=== PATIENT | female | born 1970 | race Caucasian/White ===

== ENCOUNTER 2019-09-04 07:52 | Day surgery (SDC) | payer BC ==
[~2019-09-04] VITALS: Ht 160 cm; Wt 65.8 kg
[2019-09-04 08:17] VITALS: BP 117/70; PULSE 82; TEMP 99.3
[2019-09-04] MEDS ORDERED: ESTRACE2 MG PO (08:17)
[2019-09-04 08:40] VITALS: BP 112/84; PULSE 71; TEMP 97
--- NOTE | 2019-09-04 08:40 | NUR ---
Patient arrives to [facility] via cart, accompanied by [facility] RN Caroline Craven. SHe is alert and oriented. She ambulates to the chair in her room with steady gait. Her spouse is at the bedside. Monitoring is applied -VSS and WNL on room air. She denies pain or nausea. Bedside report is received. She is offered and receives juice and a muffin to eat. PIV is to TKO. Call light in reach.
--- NOTE | 2019-09-04 08:50 | NUR ---
Dr. Venegas is at the bedside at this time and speaks with the patient and her spouse.
[2019-09-04 08:55] VITALS: BP 104/84; PULSE 77
--- NOTE | 2019-09-04 08:55 | NUR ---
Patient is resting in her room, talking with spouse. Denies pain, nausea, or need. VSS and WNL on room air.
[2019-09-04 09:25] VITALS: BP 108/49; PULSE 86; TEMP 97.8
--- NOTE | 2019-09-04 09:25 | NUR ---
Patient brought back to bay [facility] via cart. Ambulated to chair without difficulty. Placed on monitors, vital signs stable. Denies nausea or pain. Report recieved from Lynnette BRADLEY, all questions answered. Warm blanket provided. Patient asking for orange juice. called, states he is on his way to pick patient up. Call young within reach will continue to monitor.
[2019-09-04 09:40] VITALS: BP 100/58; PULSE 91
--- NOTE | 2019-09-04 09:40 | NUR ---
Patient states she is feeling well but has a headache. Patient requesting pepsi. Will continue to monitor.
[2019-09-04 09:55] VITALS: BP 103/70; PULSE 84
--- NOTE | 2019-09-04 09:55 | NUR ---
Patient states she is feeling well. Would like to go home at this time. Awaiting husbands arrival. Vital signs stable. Will continue to monitor.
--- NOTE | 2019-09-04 10:10 | NUR ---
IV removed per orders, intact. Discharge instructions and education packet reviewed with patient. All questions answered. Patient to get dressed at this time.
--- NOTE | 2019-09-04 10:23 | NUR ---
Patient brought down to lobby via wheel chair. met at front door. Will be driven home by . All belongings in hand.
== END 2019-09-04 10:23 | disposition home or self-care (01) ==
LOC: SDCO 07:52
DX: R10.32 Left lower quadrant pain (principal); K59.00 Constipation, unspecified; R19.7 Diarrhea, unspecified; G89.29 Other chronic pain; M54.5 Low back pain; Z88.5 Allergy status to narcotic agent; Z88.2 Allergy status to sulfonamides; Z79.899 Other long term (current) drug therapy
CPT/HCPCS: J2704; J7120

== ENCOUNTER 2020-01-15 05:27 | Day surgery (SDC) | payer BC ==
[~2020-01-15] VITALS: Ht 160 cm; Wt 68.6 kg
[~2020-01-15 05:27] MED LIST: ESTRACE2 MG PO
[2020-01-15 05:57] VITALS: BP 110/61; PULSE 90; TEMP 98.9
[2020-01-15] MEDS ORDERED: CARAFATE 1GM1 G PO (05:57)
[2020-01-15 08:00] VITALS: BP 90/51; PULSE 90; TEMP 97
[2020-01-15 08:15] VITALS: BP 101/57; PULSE 77
[2020-01-15 08:30] VITALS: BP 112/64; PULSE 85
[2020-01-15 08:45] VITALS: BP 113/81; PULSE 87
== END 2020-01-15 09:35 | disposition home or self-care (01) ==
LOC: SDCO 05:27
DX: N20.1 Calculus of ureter (principal); E11.9 Type 2 diabetes mellitus without complications; K50.90 Crohn's disease, unspecified, without complications; F17.210 Nicotine dependence, cigarettes, uncomplicated; Z20.828 Contact with and (suspected) exposure to other viral communicable diseases; Z79.899 Other long term (current) drug therapy; Z88.5 Allergy status to narcotic agent; Z88.2 Allergy status to sulfonamides; Z88.8 Allergy status to other drugs, medicaments and biological substances; Z80.1 Family history of malignant neoplasm of trachea, bronchus and lung; G89.29 Other chronic pain; M54.5 Low back pain
CPT/HCPCS: J0690; J1885; J2704; J3010; J7120

== ENCOUNTER → 2023-06-20 | Outpatient (CLI) | payer BC ==
[~2023-06-20] MED LIST changes: +CARAFATE 1GM1 G PO
== END ==
LOC: MC.RAD 14:20
DX: Z12.31 Encounter for screening mammogram for malignant neoplasm of breast (principal); N63.21 Unspecified lump in the left breast, upper outer quadrant; N64.89 Other specified disorders of breast

== ENCOUNTER → 2023-07-02 | Outpatient (CLI) | payer BC | LOC: MC.RAD 12:11 | DX: N63.10 Unspecified lump in the right breast, unspecified quadrant (principal) ==

== ENCOUNTER → 2023-12-18 | Outpatient (CLI) | payer BC ==
[~2023-12-18] MED LIST changes: +NORCO 325 MG-51 TAB PO
== END ==
LOC: MC.RAD 12:50
DX: N60.12 Diffuse cystic mastopathy of left breast (principal); C50.211 Malignant neoplasm of upper-inner quadrant of right female breast